=== PATIENT | female | born 1995 | race Caucasian/White ===

== ENCOUNTER 2018-07-11 11:25 | Emergency (ER) | payer MEDICAID, SELFPAY ==
[2018-07-11] VITALS (23 sets, daily range): BP systolic 119–136; BP diastolic 60–83; PULSE 71–115; RESP 12–23; TEMP 36.7; O2SAT 95–100
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
[2018-07-11] MEDS: Normal Saline 1,000 ML 1000 ML IV (11:49)
[2018-07-11 11:52] LABS: Absolute Basophil Count 0.02 k/cumm (0.0-0.2); Absolute Eosinophil Count 0.05 k/cumm (0.0-0.7); Absolute Lymphocyte Count 1.93 k/cumm (1.2-3.4); Absolute Monocyte Count 0.48 k/cumm (0.11-0.7); Absolute Neutrophil Count 4.02 k/cumm (1.2-6.7); Basophils % 0.3; Eosinophils % 0.8; HCT 40.3 % (36.0-46.0); HGB 13.9 g/dL (12.0-15.5); Lymphocytes % 29.7; Mean Corp. HGB Concentration 34.5 g/dL (32.0-36.0); Mean Corpuscular Hemoglobin 29.8 pg (27.0-33.0); Mean Corpuscular Volume 86.5 fL (80-95); Mean Platelet Volume 10.2 fL (8.0-11.0); Monocytes % 7.4; Neutrophils % 61.8; Platelet Count 237 x1000/uL (130-400); RBC 4.66 m/cumm (4.00-5.20); RBC Distribution Width 12.6 % (11.7-14.6)
[2018-07-11] MEDS: fentaNYL 100 MCG/2 ML VIAL 50 MCG IVP ×2 (11:52→13:05)
[2018-07-11 12:11] LABS: ALT 21 U/L (12-78); AST 15 U/L (15-37); Alkaline Phosphatase 68 U/L (46-116); Anion Gap 14.3 mmol/L (3-11); BUN 15 mg/dL (7-18); Bilirubin, Total 0.5 mg/dL (0.2-1.0); CO2 22.7 mmol/L (21.0-32.0); CREATININE 0.74 mg/dL (0.55-1.02); Calcium 9.3 mg/dL (8.5-10.1); Chloride 105 mmol/L (98-107); Glucose 72 mg/dL (70-100); Magnesium 1.9 mg/dL (1.8-2.4); Potassium 3.4 mmol/L (3.5-5.1); Sodium 142 mmol/L (136-145); Total Protein 7.8 g/dL (6.4-8.2); Troponin I < 0.02 ng/mL (0.00-0.06)
[2018-07-11] MEDS: Omnipaque 350 MG/ML 100 ML BTL IJ (12:44)
== END 2018-07-11 14:58 | disposition home or self-care (01) ==
PROVIDERS: Emergency Provider Physician Assistant
DX: S13.4XXA Sprain of ligaments of cervical spine, initial encounter (principal); S93.401A Sprain of unspecified ligament of right ankle, initial encounter; S80.11XA Contusion of right lower leg, initial encounter; S50.12XA Contusion of left forearm, initial encounter; V43.42XA Person boarding or alighting a car injured in collision with other type car, initial encounter
CPT/HCPCS: 29515; 36415; 74177; 80053; 81025; 96360; 96361; 99285; 70450; 71260; 72125; 73090; 73590; 73610; 83735; 84484; 85025; 99284; E0114; J3010; J3490; L1902

== ENCOUNTER 2018-11-28 14:57 | Outpatient (REF) | payer MEDICAID, SELFPAY ==
--- NOTE | 2018-11-28 14:00 | PAPFT_PTH ---
PATIENT: Mariposa Barfield LOC: [facility] U#:[id number] AGE/SX: 23/F ROOM: RE11/28/[address]: REYNA Barr : 1995 BED: DIS: 11/28/2018 SPEC #: [id number] RECD: 11/28/18 17:39 STATUS: JANES REBeverly #: [id number] JAMES: 11/28/18 14:[address]: Dali Ocasio DEPT: [facility] Cytology RECD BY: Radha Estes ENTERED: 11/28/18 17:39 SP TYPE: PAPFT JASKARAN DR: None Tissues: 1 - CX/ENDOCX FOR PAP SMEARS Procedures: PAP THIN PREP/UVM Screening Comments: [id number]
== END 2018-11-28 15:17 ==
LOC: LBN 14:57
PROVIDERS: Visit Provider Nurse Practitioner Family
DX: Z12.4 Encounter for screening for malignant neoplasm of cervix (principal)
CPT/HCPCS: 88142

== ENCOUNTER 2019-11-03 20:12 | Outpatient (REF) | payer MEDICAID, SELFPAY ==
[2019-11-03 18:27] LABS: *AMPHETAMINES SCREEN URINE Negative (Negative); *BARBITURATES SCREEN URINE Negative (Negative); *BENZODIAZEPINES SCREEN URINE Negative (Negative); Cannabinoids THC Negative (Negative); Cocaine Screen,Urine Negative (Negative); METHADONE URINE SCREEN Negative (Negative); OPIATES URINE SCREEN Negative (Negative)
[2019-11-03 18:38] LABS: Tricyclic Antidepressants Negative (Negative)
[2019-11-05 14:57] LABS: Chlamydia Result Negative (Negative); GC Result Negative (Negative)
[2019-11-08 23:17] LABS: Buprenorphine Negative; Norbuprenorphine Negative
== END 2019-11-03 20:32 ==
LOC: LBN 20:12
PROVIDERS: Visit Provider Advanced Practice Midwife
DX: Z34.91 Encounter for supervision of normal pregnancy, unspecified, first trimester (principal); Z11.3 Encounter for screening for infections with a predominantly sexual mode of transmission
CPT/HCPCS: 80307; 87491; 87591; 87086; 87480; 87510; 87660

== ENCOUNTER 2019-11-13 10:08 | Outpatient (CLI) | payer MEDICAID, SELFPAY ==
[2019-11-13 13:30] LABS: Absolute Basophil Count 0.02 k/cumm (0.0-0.2); Absolute Eosinophil Count 0.02 k/cumm (0.0-0.7); Absolute Lymphocyte Count 1.14 k/cumm (1.2-3.4); Absolute Monocyte Count 0.46 k/cumm (0.11-0.7); Absolute Neutrophil Count 4.39 k/cumm (1.2-6.7); Basophils % 0.3; Eosinophils % 0.3; HCT 37.8 % (36.0-46.0); HGB 13.2 g/dL (12.0-15.5); Lymphocytes % 18.9; Mean Corp. HGB Concentration 34.9 g/dL (32.0-36.0); Mean Corpuscular Hemoglobin 30.7 pg (27.0-33.0); Mean Corpuscular Volume 87.9 fL (80-95); Mean Platelet Volume 11.3 fL (8.0-11.0); Monocytes % 7.6; Neutrophils % 72.9; Platelet Count 253 x1000/uL (130-400); RBC Distribution Width 12.6 % (11.7-14.6); White Blood Cell Count 6.03 k/cumm (4.4-10.8)
[2019-11-13 13:45] LABS: Glucose,1 Hr (Glucola) 62 mg/dL (80-140)
[2019-11-13 13:59] LABS: TSH (W/Ref FT4) 0.69 uIU/mL (0.36-3.74)
[2019-11-14 10:09] LABS: Hepatitis C Ab w Rflx HCV PCR Negative (Negative)
[2019-11-14 10:11] LABS: HIV-1/2 Ag & Ab Screen Negative (Negative)
[2019-11-14 10:31] LABS: Varicella IgG Antibody Positive (See Note)
[2019-11-14 10:34] LABS: Rubella IgG Ab (UVM) Positive (See Note)
[2019-11-14 11:01] LABS: Hepatitis B Surface Ag Negative (Negative)
[2019-11-15 10:27] LABS: Syphilis Total Ab w/Reflex Nonreactive (Nonreactive)
== END 2019-11-13 10:28 ==
LOC: LBO 10:10 → LBN 12:18
PROVIDERS: Visit Provider Advanced Practice Midwife
DX: Z34.91 Encounter for supervision of normal pregnancy, unspecified, first trimester (principal); Z11.4 Encounter for screening for human immunodeficiency virus [HIV]; Z11.59 Encounter for screening for other viral diseases; Z01.84 Encounter for antibody response examination
CPT/HCPCS: 82950; 86787; 86803; 86850; 86900; 86901; 87340; 87389; 84443; 85025; 86762; 86780

== ENCOUNTER 2019-12-31 00:39 | Outpatient (CLI) | payer MEDICAID, SELFPAY ==
--- NOTE | 2019-12-31 07:00 | DI.US_ITS ---
EXAM: US OB 2-3 TRIMESTER CLINICAL HISTORY: 18 wk anatomy survey,Z3A.14. TECHNIQUE: Transabdominal obstetrical ultrasound performed. COMPARISON: No previous for comparison FINDINGS: There is a single living intrauterine gestation. The estimated sonographic age is 19 weeks. The fet us was in various positions during the examination. heart rate is 155 beats per minute. No fe sarina abnormalities are identified on this examination. The placenta is anterior without evidence of p revia. IMPRESSION: 1. Single live intrauterine gestation as above. 2. Normal anatomic survey. DATA REPOSITORY:
== END 2019-12-31 00:59 ==
PROVIDERS: PCP Nurse Practitioner Family; Visit Provider Advanced Practice Midwife
DX: Z34.92 Encounter for supervision of normal pregnancy, unspecified, second trimester (principal); Z3A.19 19 weeks gestation of pregnancy
CPT/HCPCS: 76805

== ENCOUNTER 2020-03-08 01:56 | Outpatient (CLI) | payer MEDICAID, SELFPAY ==
[2020-03-08 11:49] LABS: HCT 34.6 % (36.0-46.0); HGB 11.6 g/dL (11.2-15.7); MCH 30.9 pg (27.0-33.0); MCHC 33.5 % (32.0-36.0); MPV 10.2 fL (8.0-11.0); Platelet Count 230 10^3/uL (130-400); RBC 3.76 10^6/uL (3.93-5.22); RDW 12.8 % (11.7-14.6); RDW-SD 42.2 fL
[2020-03-08 11:58] LABS: Glucose,1 Hr (Glucola) 85 mg/dL (80-140)
== END 2020-03-08 02:16 ==
PROVIDERS: PCP Nurse Practitioner Family; Visit Provider Advanced Practice Midwife
DX: Z34.90 Encounter for supervision of normal pregnancy, unspecified, unspecified trimester (principal)
CPT/HCPCS: 36415; 82950; 85027

== ENCOUNTER 2020-04-08 00:49 | Outpatient (CLI) | payer MEDICAID, SELFPAY ==
--- NOTE | 2020-04-08 08:30 | DI.US_ITS ---
EXAM: US OB PRAMOD WEIGHT CLINICAL HISTORY: h/o iugr ,Z34.90 TECHNIQUE: Ultrasound performed using standard protocol. COMPARISON: US US OB 2-3 TRIMESTER from 12/31/2019 FINDINGS: Ob ultrasound was performed utilizing 3rd trimester protocol. biometry is consistent with gest ational age 32 weeks 6 days and EDC of 05/28/2020. The estimated weight is 2031 grams which is at the 40th percentile for predicted gestational ag e. Placenta is anterior with no placenta previa. There is visually a normal quantity of amniotic fluid and the PRAMOD is 18. Fetus is in cephalic presentation. heart rate 141 BPM. IMPRESSION: DATA REPOSITORY:
== END 2020-04-08 01:09 ==
PROVIDERS: PCP Nurse Practitioner Family; Visit Provider Advanced Practice Midwife
DX: Z34.93 Encounter for supervision of normal pregnancy, unspecified, third trimester (principal)
CPT/HCPCS: 76816

== ENCOUNTER 2020-05-06 01:37 | Outpatient (CLI) | payer MEDICAID, SELFPAY ==
--- NOTE | 2020-05-06 07:45 | DI.US_ITS ---
EXAM: US OB PRAMOD WEIGHT CLINICAL HISTORY: 2nd of serial usg for h/o iugr,z34.90. TECHNIQUE: Transabdominal obstetrical ultrasound performed. COMPARISON: US US OB PRAMOD WEIGHT from 04/08/2020 FINDINGS: Transabdominal obstetrical ultrasound performed. FINDINGS: Number of fetuses: One. position: Cephalic. Placental location: Anterior and fundal. No evidence of previa. BIOMETRIC DATA: EFW: 3067 grms 60% Composite Age: 37 weeks EDC: 05/27/2020 Heart Rate: 143BPM Amniotic fluid index: 17 cm. Visually, amount of fluid is within normal limits. IMPRESSION: 1. Single live intrauterine gestation as above. 2. Estimated weight is 3067gms. 3. Amniotic fluid index is 17 cm. Visually within normal limits. DATA REPOSITORY:
== END 2020-05-06 01:57 ==
PROVIDERS: PCP Nurse Practitioner Family; Visit Provider Advanced Practice Midwife
DX: Z34.93 Encounter for supervision of normal pregnancy, unspecified, third trimester (principal); Z87.59 Personal history of other complications of pregnancy, childbirth and the puerperium
CPT/HCPCS: 76816

== ENCOUNTER 2020-05-06 15:20 | Outpatient (REF) | payer MEDICAID, SELFPAY | END 2020-05-06 15:40 | LOC: LBN 15:20 | PROVIDERS: PCP Nurse Practitioner Family; Visit Provider Advanced Practice Midwife | DX: Z34.93 Encounter for supervision of normal pregnancy, unspecified, third trimester (principal) | CPT/HCPCS: 87081 ==

== ENCOUNTER 2020-05-06 16:10 | Outpatient (REF) | payer MEDICAID, SELFPAY ==
[2020-05-06 17:15] LABS: *AMPHETAMINES SCREEN URINE Negative (Negative); *BARBITURATES SCREEN URINE Negative (Negative); *BENZODIAZEPINES SCREEN URINE Negative (Negative); Cannabinoids THC Negative (Negative); Cocaine Screen,Urine Negative (Negative); METHADONE URINE SCREEN Negative (Negative); OPIATES URINE SCREEN Negative (Negative)
[2020-05-06 17:33] LABS: Tricyclic Antidepressants Negative (Negative)
[2020-05-15 12:19] LABS: Buprenorphine Negative; Norbuprenorphine Negative
== END 2020-05-06 16:30 ==
LOC: LBN 16:10
PROVIDERS: PCP Nurse Practitioner Family; Visit Provider Advanced Practice Midwife
DX: Z34.93 Encounter for supervision of normal pregnancy, unspecified, third trimester (principal)
CPT/HCPCS: 80307

== ENCOUNTER 2020-05-13 14:16 | Outpatient (CLI) | payer MEDICAID, SELFPAY ==
[2020-05-13 14:25] VITALS: BP 126/67; PULSE 93
[2020-05-13 14:26] VITALS: BP 126/67; PULSE 93; TEMP 36.6
[2020-05-13 14:49] VITALS: BP 123/72; PULSE 84
[2020-05-13 14:49] LABS: HCT 33.4 % (36.0-46.0); HGB 11.4 g/dL (11.2-15.7); MCH 31.2 pg (27.0-33.0); MCHC 34.1 % (32.0-36.0); MCV 91.5 fL (80-95); MPV 11.1 fL (8.0-11.0); Platelet Count 226 10^3/uL (130-400); RBC 3.65 10^6/uL (3.93-5.22); RDW 12.3 % (11.7-14.6); WBC 11.25 10^3/uL (4.4-10.8)
[2020-05-13 15:09] LABS: ALT 25 U/L (14-59); AST 17 U/L (15-37); Albumin 2.6 g/dL (3.4-5.0); Alkaline Phosphatase 165 U/L (46-116); Anion Gap 9.9 mmol/L (3-11); BUN 8 mg/dL (7-18); Bilirubin, Total 0.2 mg/dL (0.2-1.0); CO2 20.1 mmol/L (21.0-32.0); CREATININE 0.62 mg/dL (0.55-1.02); Calcium 8.9 mg/dL (8.5-10.1); Chloride 104 mmol/L (98-107); Glucose 85 mg/dL (74-106); Potassium 3.6 mmol/L (3.5-5.1); Sodium 134 mmol/L (136-145); Total Protein 7.1 g/dL (6.4-8.2)
[2020-05-13 15:13] LABS: PROTEIN 17.7 mg/dL
[2020-05-13 15:15] LABS: COMMENT (LAB VIEW ONLY) 152.51 mg/dL; Prot/Crea Ur Ratio 0.11
[2020-05-13 15:21] VITALS: BP 118/70; PULSE 80
[2020-05-13 16:18] LABS: Uric Acid 4.4 mg/dL (2.6-6.0)
[2020-05-14 08:39] VITALS: BP 126/67; PULSE 93; TEMP 36.6
--- NOTE | 2020-05-14 08:39 | W.OBNST ---
Date of service: 05/13/20 Time of Service: 14:00 NST Evaluation Reason for NST Reasons for Nonstress Test: GESTATIONAL HYPERTENSION Gestational Age Gestational Age in Weeks and Days: 37 Weeks and 5Days Test and Monitor Explained Test/Monitor Explained: Test Explained, Monitor Explained and Patient Verbalized Understanding Vital Signs Blood Pressure: 126/67 Pulse: 93 Temperature: 97.9 F NST Information Date on Monitor: 05/13/20 Time on Monitor: 14:15 Date off Monitor: 05/13/20 Time off Monitor: 15:26 Total Time on Monitor: 71 NST Interventions: PO Hydration NST Evaluation Patient States Movement: Present FHR Baseline: 135 Variability: Moderate 6-25 bpm Accelerations: 15x15 Decelerations: None NST Results: Reactive Note NST Note Note: Reactive Cat I, Pre-eclamptic labs wnl. Normotensive. NST Reviewed and Verified by: Cori Farris
== END 2020-05-13 16:15 | disposition home or self-care (01) ==
LOC: BCD 14:16 → OBS 14:19
PROVIDERS: PCP Nurse Practitioner Family; Visit Provider Advanced Practice Midwife
DX: O13.3 Gestational [pregnancy-induced] hypertension without significant proteinuria, third trimester (principal); Z3A.37 37 weeks gestation of pregnancy
CPT/HCPCS: 59025; 80053; 85027; 86850; 86900; 86901; 82565; 84156; 84550

== ENCOUNTER 2020-05-18 11:59 | Outpatient (CLI) | payer MEDICAID, SELFPAY ==
[2020-05-18 12:12] VITALS: BP 126/75; PULSE 84; TEMP 36.7
[2020-05-18 12:14] VITALS: BP 126/75; PULSE 84
[2020-05-18 12:33] VITALS: BP 122/73; PULSE 79
[2020-05-18 12:40] LABS: HCT 33.5 % (36.0-46.0); HGB 11.3 g/dL (11.2-15.7); MCH 30.6 pg (27.0-33.0); MCHC 33.7 % (32.0-36.0); MCV 90.8 fL (80-95); Platelet Count 221 10^3/uL (130-400); RBC 3.69 10^6/uL (3.93-5.22); RDW 12.2 % (11.7-14.6); RDW-SD 40.3 fL
[2020-05-18 12:51] VITALS: BP 124/72; PULSE 74
[2020-05-18 12:51] LABS: ALT 16 U/L (14-59); AST 13 U/L (15-37); Albumin 2.3 g/dL (3.4-5.0); Alkaline Phosphatase 173 U/L (46-116); Anion Gap 6.5 mmol/L (3-11); BUN 8 mg/dL (7-18); Bilirubin, Total 0.3 mg/dL (0.2-1.0); CO2 23.5 mmol/L (21.0-32.0); CREATININE 0.49 mg/dL (0.55-1.02); Calcium 8.3 mg/dL (8.5-10.1); Chloride 104 mmol/L (98-107); Glucose 91 mg/dL (74-106); Potassium 3.3 mmol/L (3.5-5.1); Sodium 134 mmol/L (136-145); Total Protein 6.5 g/dL (6.4-8.2); Uric Acid 4.7 mg/dL (2.6-6.0)
[2020-05-18 13:27] LABS: PROTEIN 29.3 mg/dL
[2020-05-18 13:37] LABS: COMMENT (LAB VIEW ONLY) 191.34 mg/dL; Prot/Crea Ur Ratio 0.15
--- NOTE | 2020-05-18 14:06 | W.OBNST ---
Date of service: 05/18/20 Time of Service: 14:06 NST Evaluation Reason for NST Reasons for Nonstress Test: GESTATIONAL HYPERTENSION Gestational Age Gestational Age in Weeks and Days: 38 Weeks and 3Days Test and Monitor Explained Test/Monitor Explained: Test Explained, Monitor Explained and Patient Verbalized Understanding Vital Signs Blood Pressure: 126/75 Pulse: 84 Temperature: 98.1 F NST Information Date on Monitor: 05/18/20 Time on Monitor: 12:05 Date off Monitor: 05/18/20 Time off Monitor: 12:53 Total Time on Monitor: 48 NST Interventions: PO Hydration NST Evaluation Patient States Movement: Present FHR Baseline: 150 Variability: Moderate 6-25 bpm Accelerations: 15x15 Decelerations: None NST Results: Reactive Note NST Note Note: B.P. Elevated at the office today. Reactive NST. B.P. now 126/75. No edema. Reviewed signs of preeclampsia. Normal preeclampsia labs. RTO 4 days for repeat NST and B.P. NST Reviewed and Verified by: Ashlee To
[2020-05-18 14:08] VITALS: BP 126/75; PULSE 84; TEMP 36.7
== END 2020-05-18 13:15 | disposition home or self-care (01) ==
LOC: BCD 12:00 → OBS 12:08
PROVIDERS: PCP Nurse Practitioner Family; Visit Provider Advanced Practice Midwife
DX: O13.3 Gestational [pregnancy-induced] hypertension without significant proteinuria, third trimester (principal); Z3A.38 38 weeks gestation of pregnancy
CPT/HCPCS: 36415; 59025; 80053; 85027; 82565; 84156; 84550

== ENCOUNTER 2020-05-22 15:14 | Outpatient (CLI) | payer MEDICAID, SELFPAY ==
[2020-05-22 16:16] VITALS: BP 127/87; PULSE 120
[2020-05-22 16:40] VITALS: BP 127/87; PULSE 120; TEMP 36.6
--- NOTE | 2020-05-23 07:20 | W.OBNST ---
Date of service: 05/22/20 Time of Service: 17:30 NST Evaluation Reason for NST Reasons for Nonstress Test: GESTATIONAL HYPERTENSION Gestational Age Gestational Age in Weeks and Days: 39 Weeks and 0Days Test and Monitor Explained Test/Monitor Explained: Test Explained, Monitor Explained and Patient Verbalized Understanding Vital Signs Blood Pressure: 127/87 Pulse: 120 Temperature: 97.9 F Urine Results Urine Protein: Positive Urine Ketones: Negative Urine Glucose: Negative Urine Blood: Negative NST Information Date on Monitor: 05/22/20 Time on Monitor: 16:11 Date off Monitor: 05/22/20 Time off Monitor: 16:38 Total Time on Monitor: 27 NST Interventions: PO Hydration Contraction Frequency: None NST Evaluation Patient States Movement: Present FHR Baseline: 155 Variability: Moderate 6-25 bpm Accelerations: 15x15 Decelerations: None NST Results: Reactive Note NST Note Note: NST reactive, BP WNL, keep appt with CNM on 05/25/20 NST Reviewed and Verified by: Janie Palacios
[2020-05-23 07:22] VITALS: BP 127/87; PULSE 120; TEMP 36.6
== END 2020-05-22 16:50 | disposition home or self-care (01) ==
LOC: BCD 15:16 → OBS 15:53
PROVIDERS: PCP Nurse Practitioner Family; Visit Provider Advanced Practice Midwife
DX: O13.3 Gestational [pregnancy-induced] hypertension without significant proteinuria, third trimester (principal); Z3A.39 39 weeks gestation of pregnancy
CPT/HCPCS: 59025

== ENCOUNTER 2020-05-25 01:33 | Inpatient (IN) | payer MEDICAID, SELFPAY ==
[2020-05-25] VITALS (40 sets, daily range): BP systolic 107–137; BP diastolic 55–84; PULSE 64–115; RESP 17–20; TEMP 36.4–37.1; O2SAT 84–100
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
[2020-05-25 02:52] LABS: HCT 35.1 % (36.0-46.0); HGB 11.8 g/dL (11.2-15.7); MCH 30.6 pg (27.0-33.0); MCHC 33.6 % (32.0-36.0); MCV 90.9 fL (80-95); Platelet Count 220 10^3/uL (130-400); RBC 3.86 10^6/uL (3.93-5.22); RDW 12.4 % (11.7-14.6); RDW-SD 40.8 fL; WBC 9.82 10^3/uL (4.4-10.8)
--- NOTE | 2020-05-25 03:06 | NUR.NOTE ---
Montrell Palacios CNM in room discussing plan of care with patient and .Nursing Note:
--- NOTE | 2020-05-25 03:27 | NUR.NOTE ---
In hands and knees position on bed, heat pack to lower back, tolerating labor well.Nursing Note:
--- NOTE | 2020-05-25 04:08 | NUR.NOTE ---
requests to use hydrotherapy tub. Montrell Palacios CNM to room, tub filling.Nursing Note:
--- NOTE | 2020-05-25 04:19 | NUR.NOTE ---
To hydrotherapy tub. Tub temperature 100 degrees FNursing Note:
--- NOTE | 2020-05-25 04:54 | NUR.NOTE ---
Nursing Note: Remains in tub, deep breathing with Montrell Giles CNM present, tub temperature remains 100 degrees F.
--- NOTE | 2020-05-25 05:37 | NUR.NOTE ---
remains in tub, nitrous oxide begun per patient request. Montrell Palacios CNM present. Pt able to demonstrate correct use of nitrous.Nursing Note:
--- NOTE | 2020-05-25 05:55 | NUR.NOTE ---
Remains in tub. Water temp 101 degrees F. Montrell Palacios present at tubside. Pt tolerating labor well, continues to use nitrous. Nursing Note:
--- NOTE | 2020-05-25 06:30 | NUR.NOTE ---
Out of tub, to BR, voided. Returned to bed, L lateral position, placed on EFM, continues to use nitrous.Nursing Note:
--- NOTE | 2020-05-25 06:31 | W.PM.OBNL1 ---
Date of service: 05/25/20 Time of Service: 06:31 Pelvic Exam Dilation: 6 Effacement (%): 80 station: -1 Cervix Position: posterior Consistency: soft Vaginal Exam Presentation: Cephalic Contractions Monitor Mode: External (intermittent auscultation) Intensity: Moderate Fetus A Monitor: External (US) (intermittent auscultation) Heart Rate Baseline: 150 Presentation: Cephalic FHR Rhythm: Regular Characteristics: Normal Accelerations: Present Decelerations: None Assessment and Plan Assessment and plan (1) Full-term premature rupture of membranes (PROM) with unknown onset of labor: Status: Acute Assessment and plan: A: active labor, over-warm from tub use P: expectant management, leave tub to cool down, comfort measures as pt desires run EFM tracing at shift change PO fluids, monitor for progress, anticipate Objective Abnormal lab results 05/25/20 Range/Units 02:40 RBC 3.86 L (3.93-5.22) 10^6/uL Hct 35.1 L (36.0-46.0) % Temp Pulse Resp BP Pulse Ox 97.9 F 115 H 18 107/70 96 05/25/20 06:00 05/25/20 06:00 05/25/20 06:00 05/25/20 06:00 05/25/20 06:00 Laboratory Results WBC 9.82 10^3/uL (4.4-10.8) 05/25/20 02:40 RBC 3.86 10^6/uL (3.93-5.22) L 05/25/20 02:40 Hgb 11.8 g/dL (11.2-15.7) 05/25/20 02:40 Hct 35.1 % (36.0-46.0) L 05/25/20 02:40 MCV 90.9 fL (80-95) 05/25/20 02:40 MCH 30.6 pg (27.0-33.0) 05/25/20 02:40 MCHC 33.6 % (32.0-36.0) 05/25/20 02:40 RDW 12.4 % (11.7-14.6) 05/25/20 02:40 Plt Count 220 10^3/uL (130-400) 05/25/20 02:40 MPV 11.0 fL (8.0-11.0) 05/25/20 02:40 Patient ABO/Rh A Positive 05/25/20 02:40 Antibody Screen Negative 05/25/20 02:40 Objective Narrative Objective Narrative: With increasingly painful contractions pt opted to use tub and nitrous. Has progressed to 6 cm while in tub for 2 hrs, water temp 101-102F. Now feeling tired and hot, encouraged to leave tub to cool down, use the bathroom, rest in bed, may decide to re-enter tub later. Afebrile, normotensive, FHT per auscultation have been reassuring, will run EFM tracing once back in bed for 30 minutes. Increase in maternal HR and FHT baseline likely from over-heating while in tub. Subjective Interval history since last seen: Pt notes increased pelvic pressure, increased contraction intensity, occasional nausea, tolerating PO fluid intake well Results Hemoglobin/Hematocrit: Hgb 11.8 g/dL (11.2-15.7) 05/25/20 02:40 Hct 35.1 % (36.0-46.0) L 05/25/20 02:40 Abnormal Lab Findings: Abnormal Labs 05/25/20 02:40 RBC 3.86 L Hct 35.1 L
--- NOTE | 2020-05-25 07:02 | NUR.NOTE ---
Report given to oncoming shift.Nursing Note:
--- NOTE | 2020-05-25 07:35 | W.PM.OBNL1 ---
Date of service: 05/25/20 Time of Service: 07:35 Informed Consent Informed Consent: Augmentation of Labor Contractions Monitor Mode: External Contraction Frequency(min): every 4-5 minutes Intensity: Moderate Fetus A Monitor: External (US) Heart Rate Baseline: 135 Presentation: Cephalic Variability: Moderate (6-25 BPM) Categories: Category I FHR Rhythm: Regular Characteristics: Normal Accelerations: Present Decelerations: None Amniotic Membrane Status: Ruptured (x7 hrs) Rupture Method: Spontaneous Amniotic Fluid: Clear Assessment and Plan Assessment and plan (1) Full-term premature rupture of membranes (PROM) with unknown onset of labor: Status: Acute Assessment and plan: A: multipara, SROM x 7hrs, slow progress, maternal fatigue, using nitrous P: Pt offered pitocin augmentation, R&B discussed Start IV access, anticipate Objective Vital Signs Reviewed: Yes Objective Narrative Objective Narrative: Tearful, states she is tired and not making progress, R&B for augmentation discussed, questions answered, will begin pitocin augmentation shortly. Subjective Interval history since last seen: Pt states her contractions have slowed since leaving the tub, feeling sleepy/tired, wishes she could jest get on with delivering her baby Interventions Augmentation , Pitocin rate (mU/min): 2 progressed from 4 to 6 cm dilation over 5 hrs, contractions q 4-5 minutes, cat 1 tracing, augmentation indicated, proven to 5'6, pelvis adequate for EFW 3200 gms . Results Hemoglobin/Hematocrit: Hgb 11.8 g/dL (11.2-15.7) 05/25/20 02:40 Hct 35.1 % (36.0-46.0) L 05/25/20 02:40
[2020-05-25] MEDS: Normal Saline Flush 10 ML SYR IVP ×2 (08:40→10:54)
[2020-05-25] MEDS: Lactated Ringers 1,000 ML 125 ML IV ×2 (08:40→15:28)
[2020-05-25] MEDS: Oxytocin/Normal Saline 30 UNIT/500 ML BAG 2 UNITS IV (09:18)
--- NOTE | 2020-05-25 10:44 | W.PM.OBNL1 ---
Date of service: 05/25/20 Time of Service: 10:44 Informed Consent Informed Consent: Risk,Benefits,Alternatives Discussed (discussed narcotic analgesia in labor) Pelvic Exam Dilation: 7 Effacement (%): 100 station: 0 Cervix Position: mid Vaginal Exam Presentation: Cephalic Contractions Monitor Mode: External Contraction Frequency(min): every 2-3 minutes Intensity: Moderate/Strong Fetus A Monitor: External (US) Heart Rate Baseline: 145 Presentation: Cephalic Variability: Moderate (6-25 BPM) Categories: Category I FHR Rhythm: Regular Accelerations: Present Decelerations: None Assessment and Plan Assessment and plan (1) Full-term premature rupture of membranes (PROM) with unknown onset of labor: Status: Acute Assessment and plan: A: advanced active labor, pitocin augmentation P: Per pt request will give 50 mcg fentanyl IVP x1 Continue augmentation, Dr. Sigala consulting & updated to pt status Anticipate Objective Objective Narrative Objective Narrative: Pitocin @ 4 mu/min, contractions responded quickly and appear to be adequate now, cvx change to 7/100% vtx descending to 0 station Very vocal with contractions, requesting something to help with the pain Resting in bed, currently LLP to encourage rotation Afebrile, normotensive, category 1 tracing with early's noted Subjective Interval history since last seen: Pt vocal with contractions, using nitrous well, asking for additional analgesia
[2020-05-25] MEDS: fentaNYL 100 MCG/2 ML VIAL 50 MCG IVP (10:53)
--- NOTE | 2020-05-25 12:02 | OBVDS_ITS ---
Date of service: 05/25/20 Time of Service: 12:02 OB Labor/ Delivery Information Baby A Delivery Delivery Method: Spontaneaous Presentation: Cephalic Cephalic Position: Vertex Vertex Position: Right Occipital Anterior Breech Position: N/A Cord Description-Baby A: 3 Vessels Amniotic Fluid: Clear Delivery Outcome: Liveborn Transferred: Remains with Mother Note: Given 50 mcg fentanyl IVP @ 7-8 cm, pt relaxed well for 20 minutes and th en had involuntary urges to bear down, 2nd stage huddle completed, in left lateral position over intact perineum, left nuchal hand (anterior arm), vigorous female infant, shoulders came easily, baby to mother's abdomen for drying and stim, pitocin infusion begun, cord ceased pulsating, clamped and cut by FOB @ 4-5 minutes of age, [place] placenta intact with 3 VC and trailing membranes which shredded at introitus and required ring forcep to tease from cervical os and vaginal vault. First degree perineal lac repaired with one stitch of 3.0 Vicryl to stabilize & approximate edges while pt used nitrous. EBL 350 ml, excellent family bonding. Providers Nurse Wilton Weaver: Janie Palacios Nurse: Terry Presley Nurse: Ysabel Blackwood Labor/Delivery Information Number of Babies in Womb: 1 Steroids Given: None Reason Steroids Not Administered: N/A Group Beta Strep: Negative Antibiotics Administered: No Rubella Status: Immune Blood Type: A+ Varicella Immunity: Immune Medication in Delivery: fentanyl 50 mcg Born En Route: No Maternal Complications: None Shoulder Dystocia: No Stages of Labor Onset of Labor Date: 05/25/20 Onset of Labor Time: 01:05 Complete Dilatation Date: 05/25/20 Complete Dilatation Time: 11:24 Labor - Stage 1 Duration: 0 minutes ROM Baby A: 05/25/20 ROM Baby A: 01:05 ROM Total Time- Baby A: [id number] Infant Delivery Date-Baby A: 05/25/20 Infant Delivery Time-Baby A: 11:29 Labor Stage 2 Duration: 5 minutes Placenta Delivery Date-Baby A: 05/25/20 Placenta Delivery Time-Baby A: 11:39 Labor-Stage 3 Duration: 10 minutes Total Length of Labor-Baby A: 10 hours and 24 minutes Placenta Cultured: No Placenta Status: Delivered Baby A Infant Gender: Female Gestational Status: Term (39-41.6 wks) Gestational Age in Weeks/Days: 39 Weeks and 3 Days weight: 7 lb 5.991 oz Weight Comment: 3345 gms Score-1 Minute Interval(Baby A) Heart Rate-1 minute: 100 BPM or Greater Respiratory Effort- 1 minute: Spontaneous/Strong Cry Muscle Tone-1 minute: Active Movement Reflex Response-1 minute: Prompt Response Color-1 minute: Bluish Hands or Feet Total Score-1 minute: 9 Score-5 Minute Interval(Baby A) Heart Rate- 5 minute: 100 BPM or Greater Respiratory Effort-5 minute: Spontaneous/Strong Cry Muscle Tone-5 minute: Active Movement Reflex Response-5 minute: Prompt Response Color-5 minute: Bluish Hands or Feet Total Score- 5 minute: 9 Procedure Procedures: Cord Blood Collection Interventions Pain Management Interventions: Nitrous Oxide , used by pt throughout labor and for repair and IV Analgesics , medication administered: fentanyl 50 mcg x1 IVP ./ Augmentation , Pitocin rate (mU/min): 4/ Repair of Laceration Type: Perineal , Laceration Extension: First Degree . Sponge Count Correct: No Sponges Placed in Vagina , Sharp Count Correct: Yes . Laceration Repair Note: 1 interrupted stitch placed of 3.0 vicryl to stabilize edges.
[2020-05-25] MEDS: Ibuprofen 600 MG TAB PO ×2 (12:28→20:07)
[2020-05-25] MEDS: Acetaminophen 325 MG TAB 650 MG PO ×2 (12:29→20:07)
[2020-05-26] MEDS: Ibuprofen 600 MG TAB PO ×2 (04:24→10:08)
[2020-05-26] MEDS: Acetaminophen 325 MG TAB 650 MG PO ×2 (04:25→10:07)
[2020-05-26 07:28] LABS: HCT 32.1 % (36.0-46.0); HGB 10.9 g/dL (11.2-15.7); MCH 30.6 pg (27.0-33.0); MCV 90.2 fL (80-95); Platelet Count 214 10^3/uL (130-400); RBC 3.56 10^6/uL (3.93-5.22); RDW 12.4 % (11.7-14.6); RDW-SD 40.7 fL; WBC 11.45 10^3/uL (4.4-10.8)
[2020-05-26 08:30] VITALS: BP 124/81; PULSE 89; RESP 18; TEMP 36.6; O2SAT 98
--- NOTE | 2020-05-26 08:41 | OBPPV_ITS ---
Date of service: 05/26/20 Time of Service: 08:41 Assessment and Plan Assessment and plan (1) Routine follow-up: Status: Acute Assessment and plan: A: PPD#1, nml recovery, satisfied with experience P: Plan for discharge this afternoon Depo injection prior to discharge 2 week PP appt with regulatory analyst to be via telehealth written instructions reviewed and given to pt Subjective Subjective Patient comments: Pain well controlled, Tolerating diet and Flatus present Patient's Mood: happy baby status: Doing well, Nursing well and Rooming in [place] feeding status: Exclusively breast feeding Exam Physical Exam Vital signs: Temp Pulse Resp BP Pulse Ox 98.6 F 93 H 17 128/84 98 05/25/20 19:55 05/25/20 19:55 05/25/20 19:55 05/25/20 19:55 05/25/20 19:55 Vital Signs Reviewed: Yes Constitutional Constitutional: no acute distress Neck Exam Neck Exam: Normal Breast Exam Bilateral: Breast Exam: Normal and Soft Nipple Exam: Normal Respiratory Exam Respiratory Exam: Normal Cardiovascular Exam Cardiovascular Exam: Normal Abdominal Exam Comments: soft, nontender Fundal Exam Fundus: Below Umbilicus and Firm Exam Perineum: Intact Extremities Exam Extremity Exam: Normal Skin Exam Skin Exam: Normal Psychiatric Exam Psychiatric Exam: Normal Results Hemoglobin/Hematocrit: Hgb 10.9 g/dL (11.2-15.7) L 05/26/20 06:50 Hct 32.1 % (36.0-46.0) L 05/26/20 06:50 Abnormal Lab Findings: Abnormal Labs 05/25/20 05/26/20 02:40 06:50 WBC 11.45 H RBC 3.86 L 3.56 L Hgb 10.9 L Hct 35.1 L 32.1 L
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
[2020-05-26] MEDS: Docusate Sodium 100 MG CAP PO (10:07)
[2020-05-27 08:29] LABS: SARS-CoV-2 RNA Not Detected (NotDetected)
== END 2020-05-26 14:30 | disposition home or self-care (01) | DRG 807 ==
PROVIDERS: Admitting Provider Advanced Practice Midwife; PCP Nurse Practitioner Family; Visit Provider Advanced Practice Midwife
DX: O73.1 Retained portions of placenta and membranes, without hemorrhage (principal); Z37.0 Single live birth; O70.0 First degree perineal laceration during delivery; O69.89X0 Labor and delivery complicated by other cord complications, not applicable or unspecified; O42.02 Full-term premature rupture of membranes, onset of labor within 24 hours of rupture; Z67.10 Type A blood, Rh positive; Z3A.39 39 weeks gestation of pregnancy; Z30.013 Encounter for initial prescription of injectable contraceptive; Z11.59 Encounter for screening for other viral diseases
CPT/HCPCS: 36415; 85027; 86850; 86900; 86901; U0003; J1050; J3010

== ENCOUNTER 2021-04-28 11:54 | Outpatient (REF) | payer MEDICAID, SELFPAY ==
--- NOTE | 2021-04-28 10:40 | PAPFT_PTH ---
PATIENT: Mariposa Barfield LOC: [facility] U#:[id number] AGE/SX: 26/F ROOM: RE04/28/[address]: REYNA Barr : 1995 BED: DIS: 04/28/2021 SPEC #: [id number] RECD: 04/28/21 13:30 STATUS: JANES REQ #: [id number] JAMES: 04/28/21 10:[address]: Dali Ocasio DEPT: [facility] Cytology RECD BY: Radha Estes ENTERED: 04/28/21 13:30 SP TYPE: PAPFT OTHR DR: Leonel Baldwin Tissues: 1 - CX/ENDOCX FOR PAP SMEARS Procedures: PAP THIN PREP/[facility] Screening Comments: [id number]
== END 2021-04-28 11:55 | disposition home or self-care (01) ==
LOC: LBN 11:54
PROVIDERS: PCP Nurse Practitioner Family; Visit Provider Nurse Practitioner Family
DX: Z12.4 Encounter for screening for malignant neoplasm of cervix (principal)
CPT/HCPCS: 88142

== ENCOUNTER 2024-02-06 09:58 | Outpatient (REF) | payer MEDICAID, SELFPAY ==
--- NOTE | 2024-02-06 09:30 | PAPFT_PTH ---
PATIENT: Mariposa Barfield LOC: [facility] U#:[id number] AGE/SX: 29/F ROOM: RE02/06/[address]: Melina Hensley NP : 1995 BED: DIS: 02/06/2024 SPEC #: [id number] RECD: 02/06/24 13:04 STATUS: JANES REBeverly #: [id number] JAMES: 02/06/24 09:[address]: Ayden GIFFORD,Melina DEPT: [facility] Cytology RECD BY: Radha Estes ENTERED: 02/06/24 13:04 SP TYPE: PAPFT OT DR: Unknown,Unknown Tissues: 1 - CX/ENDOCX FOR PAP SMEARS Procedures: PAP THIN PREP/[facility] Screening HPV DNA PROBE Comments: [id number] (HPV 16 & 18/45)
== END 2024-02-06 09:59 | disposition home or self-care (01) ==
LOC: LBN 09:58
PROVIDERS: Visit Provider Nurse Practitioner Women's Health
DX: Z01.419 Encounter for gynecological examination (general) (routine) without abnormal findings (principal); Z30.431 Encounter for routine checking of intrauterine contraceptive device; G47.9 Sleep disorder, unspecified; Z12.4 Encounter for screening for malignant neoplasm of cervix; F43.21 Adjustment disorder with depressed mood
CPT/HCPCS: 88142; 87624

== ENCOUNTER 2024-09-12 11:43 | Outpatient (CLI) | payer MEDICAID, SELFPAY ==
--- NOTE | 2024-09-12 14:58 | DI.RAD_ITS ---
Exam(s) XR CHEST 2V PA LATERAL EXAM: XR CHEST 2V PA LATERAL CLINICAL HISTORY: fever, r/o pneumonia, cough, R05.9 TECHNIQUE: 2D digital imaging was performed of the chest. Two images were obtained. PA and lateral views were obtained. COMPARISON: No exams were available for comparison FINDINGS: MEDIASTINUM: Normal. HEART: Normal. PULMONARY VASCULATURE: Normal. LUNGS: Clear. PLEURAL SPACE: No pleural effusion or pneumothorax. BONE:Within normal limits for the patient's age. OTHER FINDINGS:Normal. IMPRESSION: No acute pulmonary findings. DATA REPOSITORY: RADIATION DOSE DELIVERED:
== END 2024-09-12 12:03 ==
LOC: DI 11:44
PROVIDERS: Visit Provider Physician Assistant
DX: R05.9 Cough, unspecified (principal)
CPT/HCPCS: 71046

== ENCOUNTER 2024-09-13 13:49 | Emergency (ER) | payer MEDICAID, SELFPAY ==
[2024-09-13 13:55] VITALS: BP 125/86; PULSE 120; RESP 15; TEMP 37.1; O2SAT 92
--- NOTE | 2024-09-13 14:15 | RT.EKG_ITS ---
APPROVED REPORT Exam: Resting ECG Reason for Exam: TACHY Patient Location: E HR:113 bpm ECG Measurements Heart Rate 113 AXIS OK 136 P 62 QRSd 72 QRS 42 QT 320 T 0 QTc 439 Conclusion Sinus tachycardia 113 normal axis no stemi
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
[2024-09-13 15:01] VITALS: TEMP 36.6
[2024-09-13] MEDS: Normal Saline 1,000 ML 1000 ML IV (15:02)
[2024-09-13 15:33] LABS: BUN 2 mg/dL (7-18); CREATININE 0.8 mg/dL (0.55-1.02); Calcium 8.5 mg/dL (8.5-10.1); Chloride 101 mmol/L (98-107); Estimated GFR 100.96 (mL/min/1.73m2); Glucose 101 mg/dL (74-106); Potassium 3.3 mmol/L (3.5-5.1); Sodium 136 mmol/L (136-145)
[2024-09-13 15:57] VITALS: PULSE 102
[2024-09-13 16:01] VITALS: PULSE 97
[2024-09-13] MEDS: Potassium Chloride Liquid 20 MEQ PKT 40 MEQ PO (16:02)
== END 2024-09-13 16:11 | disposition home or self-care (01) ==
PROVIDERS: Emergency Provider Emergency Medicine
DX: E86.0 Dehydration (principal); R00.1 Bradycardia, unspecified; E87.6 Hypokalemia; J32.9 Chronic sinusitis, unspecified
CPT/HCPCS: 36415; 80048; 93005; 96360; 99284; 93010; 99283